=== PATIENT | female | born 1975 | race Caucasian/White ===

== ENCOUNTER 2017-07-05 05:24 | Day surgery (SDC) | payer OTHER ==
[2017-07-04 10:05] VITALS: BMI 40.0
--- NOTE | 2017-07-05 09:48 | HP ---
Past Medical History - Admission Chief Complaint: Irregular bleeding History of Present Illness: 42 year old with no bleeding for 3 months. Lab studies in normal range. Pelvic ultrasound performed 06/24/17 revealed an anteverted uterus measuring 4 by 5 by 4 cm with an irregular endometrial lining of 12.9 irregular in appearance. to risk factors for uterine cancer, BMI > 40, D and C advised as a therapeutic and diagnostic procedure. Pap Smear Normal. 70 pound recent weight loss via exercise and [employer]. History Source: Patient Limitations to Obtaining History: No Limitations - Past Medical History ...: 2 ...Para: 2 Additional OB History: 2 Csections - Past Surgical History Hx Myomectomy: No Hx Transabdominal Cerclage: No - Smoking History Smoking history: Never smoked Aproximately how many cigarettes per day: 0 - Alcohol/Substance Use Hx Alcohol Use: Yes (occas) Home Medications - Allergies Allergies/Adverse Reactions: Allergies Allergy/AdvReac Type Severity Reaction Status Date / Time No Known Allergies Allergy Unverified 07/04/17 10:04 - Home Medications Home Medications: Ambulatory Orders NK [No Known Home Medication] 07/04/17 Family Disease History - Family Disease History Family Disease History: CA: Mother (Lung cancer) Review of Systems - Review of Systems Constitutional: reports: No Symptoms Cardiovascular: reports: No Symptoms Respiratory: reports: No Symptoms Gastrointestinal: reports: No Symptoms Genitourinary: reports: No Symptoms Breasts: reports: No Symptoms Reported Musculoskeletal: reports: No Symptoms Integumentary: reports: No Symptoms Neurological: reports: No Symptoms Psychiatric: reports: No Symptoms Physical Exam-[employer] Constitutional: Yes: Well Nourished, No Distress, Calm HENT: Yes: WNL Neck: Yes: WNL, Supple, Trachea Midline Cardiovascular: Yes: WNL, Regular Rate and Rhythm Respiratory: Yes: WNL, CTA Bilaterally Gastrointestinal: Yes: WNL, Soft, Other (No masses) ...Rectal Exam: Yes: WNL Pelvis: Yes: WNL External Genitalia: Yes: Normal Internal Exam Deferred: Yes Vaginal Exam: Yes: Normal Cervix: Yes: Normal Uterus: Yes: Normal, Freely Moveable Adnexa: Normal: Bilateral Breast(s): Yes: WNL Musculoskeletal: Yes: WNL Extremities: Yes: WNL Edema: No Imaging - Results Ultrasound: Report Reviewed (Thickened irregular endometrial lining.) Assessment/Plan Irregular bleeding Thickened endometrium Plan: D and C with Hysteroscopy to be done on 07/05/17
[2017-07-05] MEDS ORDERED: MIDAZOLAM HCL 2 MG/2 ML SINGLE DOSE VIAL ONE ×2 (13:59)
[2017-07-05] MEDS ORDERED: PROPOFOL 20 ML ONE ×3 (13:59)
[2017-07-05] MEDS ORDERED: DESFLURANE GAS 240 ML BOTTLE IH ONE (14:21)
[2017-07-05] MEDS ORDERED: IBUPROFEN 400 MG TABLET (FP) PO PRN (16:05)
[2017-07-05] MEDS ORDERED: ACETAMINOPHEN 325 MG TABLET (FP) PO PRN (16:05)
[2017-07-05 18:35] VITALS: BP 111/64; PULSE 72
[2017-07-05 20:08] VITALS: TEMP 98.9
--- NOTE | 2017-07-06 09:53 | OP ---
DATE OF OPERATION: 07/05/2017 PREOPERATIVE DIAGNOSES: Irregular menstruation, thickened endometrium. POSTOPERATIVE DIAGNOSES: Irregular menstruation, thickened endometrium. OPERATION: Dilatation and curettage, hysteroscopy. SURGEON: Landon Reyes MD ANESTHESIA: General with Dr. Hills. BLOOD LOSS: 10 mL FLUID: 800 mL SPECIMEN: Endometrial curettings. DESCRIPTION OF PROCEDURE: Under general anesthesia, patient placed in the dorsal lithotomy position, prepped and draped in the usual sterile manner. Pelvic examination was performed, revealing a uterus that was anterior, normal size and shape, mobile. Adnexa not palpable. A weighted speculum was inserted in the vagina. The anterior lip of the cervix was grasped with a sharp-tooth tenaculum. Uterus sounded to approximately 5 cm dilated. The cervical os was then dilated. The 5-mm hysteroscope was inserted into the uterine cavity with saline as the distending media. The uterine cavity was noted to be symmetrical, smooth. No polyps. No fibroids. Both ostia were visualized. There were some small filmy projections on the posterior wall. With these findings noted, hysteroscope was then removed. The cervix was then dilated. Curettage was performed. Endometrial tissue was obtained. Patient tolerated the procedure well, brought to recovery room in satisfactory condition. Teena [id number]
--- NOTE | 2017-07-09 11:06 | PATH ---
Surgical Pathology Report Patient Name: ERICK DUFF Med. Rec. #: [id number] /Age/Gender: 1975 (Age: 42) / F Account: [id number] Location: [facility] Taken: 07/05/2017 Received: 07/08/2017 Reported: 07/09/2017 Physicians: Landon Reyes M.D. Specimen(s) Received ENDOMETRIAL CURETTINGS Clinical History 42-year-old , thickened endometrium, normal level FSH Final Diagnosis ENDOMETRIUM, CURETTING: WEAKLY PROLIFERATIVE ENDOMETRIUM WITH AREAS OF STROMAL BREAKDOWN. NO ENDOMETRIAL HYPERPLASIA OR CARCINOMA IDENTIFIED. Electronically Signed Natan Jameson M.D. Gross Description Received in formalin labeled "endometrial curettings," is a 2.5 x 2.3 x 0.3 cm aggregate of perdomo brown soft tissue fragments. The formalin is filtered and the specimen is entirely submitted in one cassette. 07/08/201707/08/2017
== END 2017-07-05 17:50 | disposition home or self-care (01) ==
LOC: JASU-SURG 05:24
PROVIDERS: ATTEND Obstetrics & Gynecology
PROC: 0UDB8ZX Extraction of Endometrium, Via Natural or Artificial Opening Endoscopic, Diagnostic (ICD-10-PCS; principal; 2017-07-05 15:35)
DX: N93.9 Abnormal uterine and vaginal bleeding, unspecified (principal); R93.8 Abnormal findings on diagnostic imaging of other specified body structures
CPT/HCPCS: 84703; 88305-TC; 94760